=== PATIENT | female | born 1985 | race Caucasian/White ===

== ENCOUNTER 2021-10-01 08:45 | Inpatient (IN) | payer MEDICAID ==
[2021-10-12] MEDS ORDERED: Scopolamine 1.5 MG Transdermal Patch TOP SCH (07:00)
[2021-10-12] MEDS ORDERED: Celecoxib 200 MG Cap PO SCH (07:00)
[2021-10-12] MEDS ORDERED: Acetaminophen 500 MG Tab PO ONE (07:00)
[2021-10-12] MEDS ORDERED: Dexamethasone 4 MG/ML SDV ONE (07:11)
[2021-10-12] MEDS ORDERED: Propofol 200 MG/20 ML SDV ONE (07:11)
[2021-10-12] MEDS ORDERED: Ondansetron 4 MG/2 ML SDV ONE (07:11)
[2021-10-12] MEDS ORDERED: fentaNYL 250 MCG/5 ML SDV ONE ×2 (07:11→08:43)
[2021-10-12] MEDS ORDERED: Glycopyrrolate 0.2 MG/ML 5 ML MDV ONE (07:11)
[2021-10-12] MEDS ORDERED: Rocuronium 50 MG/5 ML Vial ONE (07:11)
[2021-10-12] MEDS ORDERED: Succinylcholine 200 MG/10 ML MDV ONE (07:11)
[2021-10-12] MEDS ORDERED: Neostigmine Methylsulfate 1 MG/ML 5 ML Syringe ONE (07:11)
[2021-10-12] MEDS ORDERED: Lactated Ringers 1,000 ML ONE (07:14)
[2021-10-12 07:46] LABS: ESTIMATED GFR 67 mL/min (>60)
[2021-10-12] MEDS ORDERED: Dextrose 5%-Lactated Ringers 1,000 ML IV SCH (08:15)
[2021-10-12] MEDS ORDERED: cefOXitin 2 GM in Sodium Chloride 0.9% 50 ML IV ONE (08:30)
[2021-10-12] MEDS ORDERED: Albuterol/Ipratropium 3.0-0.5 MG/3 ML Neb Soln NEB ONE (08:30)
[2021-10-12] MEDS ORDERED: Ketamine 500 MG/5 ML MDV IV SCH (08:45)
[2021-10-12] MEDS ORDERED: Ketamine 18 MG in Sodium Chloride 0.9% 19.82 ML IV SCH (08:45)
[2021-10-12] MEDS ORDERED: cefOXitin 2 GM Vial ONE (08:46)
[2021-10-12] MEDS ORDERED: hydrALAZINE 20 MG/ML SDV ONE (10:14)
[2021-10-12] MEDS ORDERED: Labetalol 20 MG/4 ML Syringe ONE (10:14)
[2021-10-12] MEDS ORDERED: hydrOXYzine HCL 100 MG/2 ML SDV IM ONE (11:00)
[2021-10-12] MEDS ORDERED: fentaNYL 50 MCG/ML SDV IVPUSH ONE (11:00)
[2021-10-12] MEDS ORDERED: HYDROmorphone 0.5 MG/0.5 ML Syringe IVPUSH PRN (13:00)
[2021-10-12] MEDS ORDERED: Albuterol/Ipratropium 3.0-0.5 MG/3 ML Neb Soln INH PRN (13:00)
[2021-10-12] MEDS ORDERED: Metoclopramide 10 MG/2 ML SDV IVPUSH PRN (13:00)
[2021-10-12] MEDS ORDERED: Ondansetron 4 MG/2 ML SDV IVPUSH PRN (13:00)
[2021-10-12] MEDS ORDERED: hydrOXYzine HCL 100 MG/2 ML SDV IM PRN (13:00)
[2021-10-12] MEDS ORDERED: Acetaminophen 500 MG Tab PO PRN (13:00)
[2021-10-12] MEDS ORDERED: Labetalol 20 MG/4 ML Syringe IVPUSH PRN (13:00)
[2021-10-12] MEDS ORDERED: diphenhydrAMINE 50 MG/ML SDV IVPUSH PRN (13:00)
[2021-10-12] MEDS ORDERED: HYDROmorphone 1 MG/ML Syringe IV PRN (13:00)
[2021-10-12] MEDS ORDERED: Pantoprazole 40 MG Vial IVPUSH SCH (14:00)
[2021-10-12] MEDS: Acetaminophen 500 MG Tab PO SCH ×2 (14:03→21:55)
[2021-10-12] MEDS: cefOXitin 2 GM in Sodium Chloride 0.9% 50 ML IV SCH ×2 (14:07→19:49)
[2021-10-12] MEDS: Albuterol/Ipratropium 3.0-0.5 MG/3 ML Neb Soln INH SCH ×2 (14:30→21:53)
[2021-10-12] MEDS: Cyclobenzaprine 10 MG Tab PO PRN (15:04)
[2021-10-12] MEDS: MVI, Adult with Vitamin K 10 ML, Thiamine 200 MG, Zinc/Copper/Manganese/Selenium 1 ML i... IV SCH ×4 (15:58)
[2021-10-12] MEDS: oxyCODONE 5 MG Tab PO PRN ×2 (16:08→22:03)
[2021-10-12] MEDS: Heparin Sodium 5,000 Units/ML Vial SUBCUT SCH (18:29)
[2021-10-12] MEDS: Dextrose 5%-Lactated Ringers 1,000 ML IV SCH (22:04)
[2021-10-13] MEDS ORDERED: Iopamidol 612 MG/ML 50 ML SDV PO STA (02:11)
[2021-10-13] MEDS: cefOXitin 2 GM in Sodium Chloride 0.9% 50 ML IV SCH ×2 (02:22→07:29)
[2021-10-13] MEDS: oxyCODONE 5 MG Tab PO PRN ×3 (04:13→16:59)
[2021-10-13] MEDS: Dextrose 5%-Lactated Ringers 1,000 ML IV SCH (04:17)
[2021-10-13] MEDS: Heparin Sodium 5,000 Units/ML Vial SUBCUT SCH ×2 (05:47→16:59)
[2021-10-13] MEDS: Acetaminophen 500 MG Tab PO SCH ×3 (05:49→21:19)
[2021-10-13] MEDS: Albuterol/Ipratropium 3.0-0.5 MG/3 ML Neb Soln INH SCH ×4 (07:12→21:17)
[2021-10-13] MEDS: Cyclobenzaprine 10 MG Tab PO PRN ×2 (07:28→15:54)
[2021-10-13] MEDS ORDERED: Ondansetron 4 MG Tab.DIS PO PRN (07:42)
[2021-10-13] MEDS ORDERED: hydrOXYzine HCl 25 MG Tab PO PRN (07:43)
[2021-10-13] MEDS ORDERED: Dextrose 5%-Lactated Ringers 1,000 ML IV SCH (07:45)
[2021-10-13] MEDS: buPROPion 150 MG Tab.ER PO SCH (08:04)
[2021-10-13] MEDS: traMADol 50 MG Tab PO PRN ×3 (08:04→21:19)
[2021-10-13] MEDS: Celecoxib 200 MG Cap PO SCH ×2 (08:04→21:19)
[2021-10-13] MEDS ORDERED: SCOPOLAMINE PATCH CHECK TOP SCH (09:00)
[2021-10-13] MEDS: Pantoprazole 40 MG Tab.CR PO SCH (09:01)
[2021-10-13] MEDS: MVI, Adult with Vitamin K 10 ML, Thiamine 200 MG, Zinc/Copper/Manganese/Selenium 1 ML i... IV SCH ×4 (15:54)
[2021-10-14] MEDS: traMADol 50 MG Tab PO PRN (05:49)
[2021-10-14] MEDS: Heparin Sodium 5,000 Units/ML Vial SUBCUT SCH (05:50)
[2021-10-14] MEDS: Acetaminophen 500 MG Tab PO SCH (05:50)
[2021-10-14] MEDS: Albuterol/Ipratropium 3.0-0.5 MG/3 ML Neb Soln INH SCH (07:03)
[2021-10-14] MEDS: Celecoxib 200 MG Cap PO SCH (08:09)
[2021-10-14] MEDS: buPROPion 150 MG Tab.ER PO SCH (08:09)
[2021-10-14] MEDS: Pantoprazole 40 MG Tab.CR PO SCH (08:09)
[2021-10-14] MEDS ORDERED: Cyanocobalamin (Vitamin B12) 1,000 MCG/ML SDV IM ONE (09:00)
== END 2021-10-14 10:42 | disposition home or self-care (01) | DRG 620 ==
LOC: JP.SDS 10-12 06:51 → EDSTATUS 10-12 07:15 → JP.2SS 10-12 09:45
PROVIDERS: ADMIT Surgery; ATTEND Surgery
PROC: 0DB64Z3 Excision of Stomach, Percutaneous Endoscopic Approach, Vertical (ICD-10-PCS; principal; 2021-10-12)
PROC: 0FB04ZX Excision of Liver, Percutaneous Endoscopic Approach, Diagnostic (ICD-10-PCS; 2021-10-12)
PROC: 0BUT4JZ Supplement Diaphragm with Synthetic Substitute, Percutaneous Endoscopic Approach (ICD-10-PCS; 2021-10-12)
PROC: 0WBC4ZZ Excision of Mediastinum, Percutaneous Endoscopic Approach (ICD-10-PCS; 2021-10-12)
DX: E66.01 Morbid (severe) obesity due to excess calories (principal); F33.1 Major depressive disorder, recurrent, moderate; Z68.44 Body mass index [BMI] 60.0-69.9, adult; K21.9 Gastro-esophageal reflux disease without esophagitis; E55.9 Vitamin D deficiency, unspecified; R16.0 Hepatomegaly, not elsewhere classified; K44.9 Diaphragmatic hernia without obstruction or gangrene; Z20.822 Contact with and (suspected) exposure to COVID-19; D17.79 Benign lipomatous neoplasm of other sites; F41.1 Generalized anxiety disorder; Z88.1 Allergy status to other antibiotic agents; Z87.442 Personal history of urinary calculi; Z88.8 Allergy status to other drugs, medicaments and biological substances
CPT/HCPCS: 36415; 74240; 74240-26; 80053; 83735; 84100; 84703; 85027; 86850; 86900; 86901; 88304; 88307; 88313; 94640; A9270-GY; C1713; C1781; C9113; J0171; J0330; J0360; J0694; J1100; J1170; J1644; J2405; J2704; J2710; J2795; J3010; J3410; J3411; J3420; J3490; J7120; J7121; J7620; Q9967; U0002